=== PATIENT | female | born 1970 | race Caucasian/White ===

== ENCOUNTER 2020-02-24 20:03 | Emergency (ER) | payer MEDICAID ==
[~2020-02-24] VITALS: Ht 157.5 cm; Wt 159.1 kg
[~2020-02-24 20:03] MED LIST: CHLO473M3 PO; DES150T PO; GABA-338 PO; PARO20TA53 PO; TRI150T CORPAK; WALKERFR
--- NOTE | 2020-02-24 20:24 | NUR ---
Pt. being disruptive and not answering questions in triage.
[2020-02-24 20:42] VITALS: BP 141/100
[2020-02-24] MEDS ORDERED: ondansetron 4mg rapidly disintigrating tab PO ONE (20:45)
[2020-02-24] MEDS ORDERED: acetaminophen 325mg tablet PO ONE (20:45)
[2020-02-24] MEDS ORDERED: ibuprofen tablet 400 MG TABLET PO ONE (20:45)
== END 2020-02-24 21:14 | disposition home or self-care (01) ==
LOC: ER 20:04
DX: R62.50 Unspecified lack of expected normal physiological development in childhood (principal); R32 Unspecified urinary incontinence; R10.9 Unspecified abdominal pain; R05 Cough; Z59.0 Homelessness; Z00.01 Encounter for general adult medical examination with abnormal findings
CPT/HCPCS: 99281